=== PATIENT | female | born 1995 | race Caucasian/White ===

== ENCOUNTER 2019-05-01 15:46 | Emergency (ER) | payer SELFPAY ==
[2019-05-01 20:05] LABS: Urine Appearance Cloudy; Urine Bacteria 1+ (Absent); Urine Bilirubin Negative (Negative); Urine Blood Negative (Negative); Urine Color Yellow; Urine Glucose Negative (Negative); Urine Ketones Negative (Negative); Urine Nitrite Negative (Negative); Urine Protein Negative (Negative); Urine Red Blood Cell 1+(3-5/hpf) (Absent); Urine Specific Gravity 1.012 (1.010-1.030); Urine Squamous Epithelial Cell Present (Absent); Urine Urobilinogen Negative (Negative); Urine White Blood Cell 1+(6-10/hpf) (Absent)
--- NOTE | 2019-05-01 20:34 | ED ---
Abdominal Pain/Female - HPI Summary HPI Summary: Patient is a 23 F presenting to [facility] accompanied by male friend with a chief complaint of intermittent suprapubic abdominal and side pain since last night () rated at 2/10 in severity currently. Patient reported to fall 2 times, first 2 days ago and the second earlier today, 05/01/19. Patient reports that she slipped on water the first time she fell hitting her side and the second time she was playing with children when she fell on the same side. Patient reports that her pain started last night when she could not get up to urinate and felt a pain under her abdominal area. Patient denies discharge or blood. Per triage, patient feels nausea. Patient reports to be 15-16 weeks , has never had an ultrasound done, but reports to have found she was after visiting a doctor and having 2 tests done at home. Patient reports that this is her 2nd time with a 4 year old at home, A 0. Patient reports her blood type is O positive. Symptoms aggravated by nothing. Symptoms alleviated by nothing. - History of Current Complaint Chief Complaint: EDGeneral Stated Complaint: "FALL 15 WEEKS PER PT" Time Seen by Provider: 05/01/19 19:12 Hx Obtained From: Patient Onset/Duration: Lasting Days - 1 Timing: Intermittent Episode Lasting Pain Intensity: 2 Pain Scale Used: 0-10 Numeric Location: Suprapubic, Other - side, below abdomen Aggravating Factor(s): Nothing Alleviating Factor(s): Nothing Associated Signs and Symptoms: Positive: Nausea. Negative: Vaginal Bleeding, Vaginal Discharge Allergies/Adverse Reactions: Allergies Allergy/AdvReac Type Severity Reaction Status Date / Time No Known Allergies Allergy Verified 05/01/19 16:03 Home Medications: Home Medications Acetaminophen [Tylenol] 650 mg PO QID PRN 05/01/19 [History Confirmed 05/01/19] PMH/Surg Hx/FS Hx/Imm Hx Endocrine/Hematology History: Denies: Hx Diabetes Cardiovascular History: Denies: Hx Hypertension Sensory History: Denies: Hx Contacts or Glasses Opthamlomology History: Denies: Hx Contacts or Glasses - Surgical History Surgical History: None Surgery Procedure, Year, and Place: nothing Infectious Disease History: No Infectious Disease History: Denies: Traveled Outside the [place] in Last 30 Days - Family History Known Family History: Negative: Cardiac Disease, Diabetes - Social History Alcohol Use: None Hx Substance Use: No Substance Use Type: Reports: None Hx Tobacco Use: No Smoking Status (MU): Never Smoked Tobacco Review of Systems Positive: Abdominal Pain, Nausea Positive: other - (-): bleeding. Negative: discharge All Other Systems Reviewed And Are Negative: Yes Physical Exam - Summary Physical Exam Summary: VITAL SIGNS: Reviewed. GENERAL: Patient is a well-developed and nourished FEMALE who is lying comfortable in the stretcher. Patient is not in any acute respiratory distress. HEAD AND FACE: No signs of trauma. No ecchymosis, hematomas or skull depressions. No sinus tenderness. EYES: PERRLA, EOMI x 2, No injected conjunctiva, no nystagmus. EARS: Hearing grossly intact. Ear canals and tympanic membranes are within normal limits. MOUTH: Oropharynx within normal limits. NECK: Supple, trachea is midline, no adenopathy, no JVD, no carotid bruit, no c- spine tenderness, neck with full ROM CHEST: Symmetric, no tenderness at palpation LUNGS: Clear to auscultation bilaterally. No wheezing or crackles. CVS: Regular rate and rhythm, S1 and S2 present, no murmurs or gallops appreciated. ABDOMEN: Soft, non-tender. No signs of distention. No rebound no guarding, and no masses palpated. Bowel sounds are normal. EXTREMITIES: FROM in all major joints, no edema, no cyanosis or clubbing. NEURO: Alert and oriented x 3. No acute neurological deficits. Speech is normal and follows commands. SKIN: Dry and warm Triage Information Reviewed: Yes Vital Signs On Initial Exam: Initial Vitals Temp Pulse Resp BP Pulse Ox 98.6 F 83 16 110/73 99 05/01/19 15:57 05/01/19 15:57 05/01/19 15:57 05/01/19 15:57 05/01/19 15:57 Vital Signs Reviewed: Yes Diagnostics - Vital Signs Vital Signs Temp Pulse Resp BP Pulse Ox 05/01/19 17:56 98.1 F 72 18 97/62 99 05/01/19 15:57 98.6 F 83 16 110/73 99 - Laboratory Lab Results: Lab Results 05/01/19 Range/Units 19:50 Urine Color Yellow Urine Appearance Cloudy Urine pH 5.0 (5-9) Ur Specific Wesley 1.012 (1.010-1.030) Urine Protein Negative (Negative) Urine Ketones Negative (Negative) Urine Blood Negative (Negative) Urine Nitrate Negative (Negative) Urine Bilirubin Negative (Negative) Urine Urobilinogen Negative (Negative) Ur Leukocyte Esterase 3+ A (Negative) Urine WBC (Auto) 1+(6-10/hpf) A (Absent) Urine RBC (Auto) 1+(3-5/hpf) A (Absent) Ur Squamous Epith Cells Present A (Absent) Urine Bacteria 1+ A (Absent) Urine Glucose Negative (Negative) Lab Statement: Any lab studies that have been ordered have been reviewed, and results considered in the medical decision making process. - Ultrasound US Ultrasound Interpretation Completed By: Radiologist Summary of Ultrasound Findings: Per radiologist,. 1. Single viable IUP corresponding to 10 weeks 5 days gestation. 2. Small to moderate subchorionic hemorrhage. ED physician has reviewed this imaging report. Abdominal Pain Fem Course/Dx - Course Course Of Treatment: Patient is a 23 F presenting to [facility] accompanied by male friend with a chief complaint of intermittent suprapubic abdominal and side pain since last night (04/30/19) rated at 2/10 in severity currently. Patient reported to fall 2 times, first 2 days ago and the second earlier today, . Patient denies discharge or blood. Per triage, patient feels nausea. Patient reports to be 15-16 weeks . Patient reports that this is her 2nd time with a 4 year old at home, A 0. Physical Exam shows no abnormalities. Patient was given metoclopramide Hcl 10 mg PO in the ED and ampicillin 500 mg PO. Urinalysis shows no abnormalities except for Ur Leukocyte Esterase 3+ A, Urine WBC 1+ (6-10/hpf) A, Urine RBC 1+ (3-5 /hpf) A, Ur Squamous Epith Cells Present A, and Urine Bacteria 1+ A. ultrasounds reveals 1. Single viable IUP corresponding to 10 weeks 5 days gestation. 2. Small to moderate subchorionic hemorrhage. Physician discussed discharge with patient who agrees to discharge. Patient will be discharged. Patient will follow up with primary care provider and Dr. Hagan, obstetrics, within 3 days. - Diagnoses Provider Diagnoses: , Urinary tract infection Discharge - Sign-Out/Discharge Documenting (check all that apply): Patient Departure - discharge Patient Received Moderate/Deep Sedation with Procedure: No - Discharge Plan Condition: Stable Disposition: HOME Prescriptions: Ampicillin CAP* [Ampicillin Cap*] 500 mg PO QID #30 cap Patient Education Materials: Urinary Tract Infection in (ED) Referrals: [facility] [place] PHYSICIAN REFERRAL [Outside] - 3 Days Nettie Hagan MD [Medical Doctor] - 3 Days Additional Instructions: Follow up with primary care provider and , obstetrics, within 3 days. PLEASE RETURN TO THE ED IMMEDIATELY FOR WORSENING OR CONCERNING SYMPTOMS. - Attestation Statements Document Initiated by Scribe: Yes Documenting Scribe: Jo Wong Provider For Whom Scribe is Documenting (Include Credential): Michelle Bland MD Scribe Attestation: Jo Flores, scribed for Michelle Bland MD on 05/02/19 at 0342. Status of Scribe Document: Ready
[2019-05-01] MEDS ORDERED: Metoclopramide TAB* 10 MG PO ONE (21:43)
[2019-05-01] MEDS ORDERED: Ampicillin CAP* 500 MG PO ONE (23:14)
[2019-05-01 23:52] VITALS: BP 121/71
== END 2019-05-01 23:50 | disposition home or self-care (01) ==
LOC: ED 15:46
DX: O23.41 Unspecified infection of urinary tract in pregnancy, first trimester (principal); Z3A.10 10 weeks gestation of pregnancy
CPT/HCPCS: 76801; 81003; 81015; 87086; 99282; A9270-GY